=== PATIENT | female | born 1960 | race Caucasian/White ===

== ENCOUNTER 2018-06-08 10:54 | Day surgery (SDC) | payer BC, OTHER ==
[~2018-06-08 10:54] MED LIST: METOPROLOL 5 MG INJ
[2018-06-08] MEDS ORDERED: MIDAZOLAM 1 MG/ML 2 ML INJ (13:58)
[2018-06-08] MEDS ORDERED: FENTAnyl 50 MCG/ML VIAL (13:58)
[2018-06-08] MEDS ORDERED: DIPHENHYDRAMINE 50 MG INJ IV (14:00)
[2018-06-08] MEDS ORDERED: ONDANSETRON 4 MG INJ IV (14:00)
[2018-06-08] MEDS ORDERED: MEPERIDINE 25 MG INJ IV (14:00)
[2018-06-08] MEDS ORDERED: FENTAnyl 50 MCG/ML VIAL IV (14:00)
[2018-06-08] MEDS ORDERED: HYDROmorphONE 1 MG/5 ML IV SYRINGE IV ×2 (14:00)
[2018-06-08] MEDS ORDERED: LABETALOL HCL 20MG INJ IV (14:00)
[2018-06-08] MEDS ORDERED: LIDOCAINE 1%/EPI 30 ML INJ (14:04)
[2018-06-08] MEDS ORDERED: OXYMETAZOLINE 0.05% 15 ML NAS SPRAY NASAL (14:05)
[2018-06-08] MEDS: LIDOCAINE 1%/EPI 30 ML INJ INJ (14:09)
[2018-06-08] MEDS: OXYMETAZOLINE 0.05% 15 ML NAS SPRAY NASAL (14:10)
[2018-06-08] MEDS ORDERED: LIDOCAINE 2% (SDV) 5 ML INJ (15:02)
[2018-06-08] MEDS ORDERED: PROPOFOL 20 ML (15:02)
[2018-06-08] MEDS ORDERED: GLYCOPYRROLATE 0.4 MG INJ (15:03)
[2018-06-08] MEDS ORDERED: NEOSTIGMINE 3 MG/3 ML SYRINGE (15:03)
[2018-06-08] MEDS ORDERED: ONDANSETRON 4 MG INJ (15:03)
[2018-06-08] MEDS ORDERED: ROCURONIUM 50 MG INJ (15:03)
[2018-06-08] MEDS: hydrALAzine 20 MG INJ IV (15:38)
== END 2018-06-08 17:35 | disposition home or self-care (01) ==
LOC: SDS 10:54
DX: J34.2 Deviated nasal septum (principal); J34.3 Hypertrophy of nasal turbinates; I10 Essential (primary) hypertension; J45.909 Unspecified asthma, uncomplicated
CPT/HCPCS: 30140; 88300